=== PATIENT | male | born 1980 | race African-American/Black ===

== ENCOUNTER 2018-08-02 08:17 | Inpatient (IN) | payer OTHER ==
[~2018-08-02] VITALS: Ht 162.6 cm; Wt 67.6 kg
[2018-08-02 08:30] VITALS: BP 113/73; TEMP 99.3
[2018-08-02 09:30] VITALS: BP 115/70
[2018-08-02 09:37] LABS: PLATELET COUNT 252 K/uL (142-355)
[2018-08-02 09:50] LABS: POTASSIUM 3.6 mmol/L (3.6-5.2)
[2018-08-02 10:30] VITALS: BP 110/70
[2018-08-02 11:30] VITALS: BP 113/68
[2018-08-02 16:34] VITALS: BP 112/69; TEMP 98; Ht 162.6 cm; Wt 67.6 kg
[2018-08-02 20:00] VITALS: BP 121/70; TEMP 98.8
[2018-08-03] VITALS: BP 109/73; TEMP 98.7
[2018-08-03 03:59] VITALS: BP 101/56; TEMP 98.8
[2018-08-03 06:02] LABS: PLATELET COUNT 268 K/uL (142-355)
[2018-08-03 06:15] LABS: POTASSIUM 3.8 mmol/L (3.6-5.2)
[2018-08-03 08:00] VITALS: BP 97/43; TEMP 97.5
[2018-08-03 12:00] VITALS: BP 108/66; TEMP 97.7
[2018-08-03 16:00] VITALS: BP 99/61; TEMP 97.9
[2018-08-03 20:09] VITALS: BP 104/70; TEMP 98.4
[2018-08-04 00:05] VITALS: BP 111/68; TEMP 98.8
[2018-08-04 04:00] VITALS: BP 100/62; TEMP 98.8
[2018-08-04 08:00] VITALS: BP 146/77; TEMP 97.8
[2018-08-04 12:00] VITALS: BP 94/64; TEMP 98.5
[2018-08-04 16:00] VITALS: BP 100/56; TEMP 98
[2018-08-04 19:37] VITALS: BP 105/71; TEMP 98.4
[2018-08-05 00:18] VITALS: BP 97/54; TEMP 98
[2018-08-05 04:00] VITALS: BP 143/68; TEMP 98.3
[2018-08-05 05:09] LABS: POTASSIUM 4.4 mmol/L (3.6-5.2)
[2018-08-05 05:41] LABS: PLATELET COUNT 266 K/uL (142-355)
[2018-08-05 08:00] VITALS: BP 95/68; TEMP 96.9
[2018-08-05] MEDS ORDERED: CLIN300C PO ×2 (10:13→11:08)
== END 2018-08-05 10:58 | disposition home or self-care (01) | DRG 872 ==
LOC: ED 08:17 → MED/SURG 11:25 → ED 11:25 → MED/SURG 08-05 10:58
PROVIDERS: ADMIT Family Medicine
DX: A41.89 Other specified sepsis (principal); J02.0 Streptococcal pharyngitis; Q90.9 Down syndrome, unspecified; N18.2 Chronic kidney disease, stage 2 (mild); E86.9 Volume depletion, unspecified
CPT/HCPCS: 36415; 80048; 80053; 81000; 83605; 85007; 85027; 87040; 87502; 87651; 94760; 96365; 96367; 96372; 96374; 96375; 99284; J0132; J0696; J1100; J1650; J2765; J2920; J2930; J3010; J3490